=== PATIENT | male | born 1995 | race Caucasian/White ===

== ENCOUNTER 2021-09-12 12:30 | Emergency (ER) | payer SELFPAY ==
[2021-09-12 12:34] VITALS: BP 121/67; PULSE 80; RESP 14; TEMP 36.8; O2SAT 98
--- NOTE | 2021-09-12 12:44 | W.ED.LOWEXIN ---
HPI - Extremity Injury (Lower) General: Chief Complaint: Extremity Injury, Lower Stated Complaint: cant put pressure on ankle Time Seen by Provider: 09/12/21 12:35 Source: patient Mode of arrival: ambulatory Limitations: no limitations History of Present Illness: HPI Narrative: Patient is a 26-year-old male who presents to ED today for evaluation of right ankle pain. Patient tells me 3 to 4 weeks ago he fell down a flight of stairs and rolled his ankle. Patient states he initially thought he may have just strained it so treated conservatively by limiting weight bearing and wearing surgical boot that he had. Patient states even now it is incredibly tender with ambulation. No other injuries or complaints at this time. complaint: ankle injury Onset (ago): week(s) Place: home Severity: moderate Relieving factors: immobilization Exacerbating factors: weight bearing Context: fall Associated symptoms: Reports no associated symptoms Other symptoms: none Review of Systems Musc: Reports: joint pain (R ankle pain); Denies: neck pain, back pain, extremity swelling, joint swelling, joint redness or joint warmth Neuro: Denies: numbness in extremities, weakness in extremities or sensory changes Physical Exam Const: COMMON NORMALS: no acute distress, average body habitus, patient oriented x3, no limitations, healthy appearing, alert and well nourished Extremity: GENERAL: Yes normal exam except as noted RIGHT LOWER EXTREMITY: Yes foot & digits (TTP medial R ankle; no swelling or bony deformity appreciated) Right ankle: Yes neurovascular exam (normal) Neuro: COMMON NORMALS: patient oriented x3, moves all extremities, no focal motor deficits and no sensory deficits noted SENSORIUM/ORIENTATION: Yes alert Skin: TRAUMA: no lacerations or abrasions Course Vital Signs: Vital signs: Vital Signs Temperature 98.3 F 09/12/21 12:34 Pulse Rate 80 09/12/21 12:34 Respiratory Rate 14 09/12/21 12:34 Blood Pressure 121/67 09/12/21 12:34 Pulse Oximetry 98 09/12/21 12:34 MDM - Extremity Injury (Lower) MDM Narrative: Medical decision making narrative: XR negative. Will refer to orthopedics as patient has been doing well with conservative therapies at home yet he is now 3-4 wks post injury and still cannot bear full weight onto ankle. Information placed with CM. Imaging Data^: XR R ankle: Radiologist's impression: [facility], [place] [address]SCgd ReportSigned Patient: Jaycob Martin #: [id number]: 1995Acct#:[id number]/Sex: 26 / MADM Date: 09/12/21Loc: ERRoom/Bed:Attending Dr: Ordering Provider/Ordering MD: Kaylin Lynch Date of Service: 09/12/21 Procedure(s): XR ankle RT min 3V* 47153 Accession Number(s): [id number] Report Number: [id number] WS: [id number] XR ankle RT min 3V* [id number] REASON FOR EXAM: injury/pain FINDINGS: No fracture identified. The ankle mortise is intact. Soft tissue swelling around the ankle joint. XR/XR ankle RT min 3V* [id number] IMPRESSION: Soft tissue swelling with no fracture or dislocation identified. Dictated By:Aime Hall Jr MDSigned By:Aime aHll Jr MDSigned Date/Time:09/12/21 1310DD/ 1309 Discharge Plan Discharge Patient Disposition: Home Clinical Impression: Injury of right ankle Qualifiers: Encounter type: initial encounter Qualified Code(s): S99.911A - Unspecified injury of right ankle, initial encounter Condition: Stable Discharge Orders: Discharge ED (Routine); Ordered 09/12/21 Ordered By: Kaylin Lynch Coding Level of Care Code ED Reeling Machine Setup Operator for Chg Fwd Exam Expanded Problem Focused
--- NOTE | 2021-09-12 12:50 | XR_ITS ---
WS: [id number] XR ankle RT min 3V* [id number] REASON FOR EXAM: injury/pain FINDINGS: No fracture identified. The ankle mortise is intact. Soft tissue swelling around the ankle joint. XR/XR ankle RT min 3V* [id number] IMPRESSION: Soft tissue swelling with no fracture or dislocation identified.
--- NOTE | 2021-09-14 10:37 | DCPLANNER ---
manager testing had message to schedule a follow up appointment for patient with ortho. manager testing called the ortho clinic, spoke with Samantha, gave clinic patients information. manager testing was told that patients information would be printed and reviewed. Clinic will call patient with appointment information.
--- NOTE | 2021-09-16 07:51 | DCPLANNER ---
Addendum entered by Pat Benoit 10/06/21 15:06: Patient had a follow up appointment scheduled for 09.20.[address] Osborne at ortho - patient did attend appointment. Original Note: Patient has a follow up appointment scheduled for Monday, September 20, 2021 at 2:[address] Osborne at ortho. Clinic will call patient with appointment information.
== END 2021-09-12 13:21 | disposition home or self-care (01) ==
PROVIDERS: Emergency Provider Physician Assistant
DX: S99.911A Unspecified injury of right ankle, initial encounter (principal); W10.8XXA Fall (on) (from) other stairs and steps, initial encounter
CPT/HCPCS: 73610; 99281

== ENCOUNTER 2022-05-08 14:44 | Emergency (ER) | payer SELFPAY ==
[2022-05-08 15:01] VITALS: BP 163/81; PULSE 72; RESP 16; TEMP 36.9; O2SAT 99; BMI 27.7
--- NOTE | 2022-05-08 16:10 | XRR_ITS ---
PROCEDURE INFORMATION: Exam: XR Right Hand Exam date and time: 05/08/2022 4:22 PM Age: 27 years old Clinical indication: Injury or trauma; Other: Hand vs door; Other: Blunt trauma TECHNIQUE: Imaging protocol: Radiologic exam of the Right hand. Views: 3 or more views. COMPARISON: No relevant prior studies available. FINDINGS: Bones/joints: Acute fracture of the distal portion of the 5th metacarpal with volar angulation of the distal fragment. 1st through 4th metacarpals are intact. Phalanges are intact. Carpal bones are intact. Soft tissues: Soft tissue swelling is noted. XR/XR hand RT min 3V* [id number] IMPRESSION: Acute boxer's fracture of the 5th metacarpal.
[2022-05-08 17:54] VITALS: BP 135/78; PULSE 78; RESP 16; O2SAT 98
--- NOTE | 2022-05-09 22:12 | W.ED.GENADLT ---
HPI - General Adult General: Chief complaint: General Medical Stated complaint: Right hand injury Time Seen by Provider: 05/08/22 15:28 History of Present Illness: 27-year-old male patient presents to the emergency department complaining of right hand pain. Patient states he punched a wall yesterday patient states he woke up today with significant swelling to the lateral aspect of his right hand. Patient denies any numbness or tingling. Patient denies any other trauma or injury. Associated symptoms: Deny chest pain, confusion, diaphoresis, dyspnea, headache(s), malaise, nausea, rash, palpitations, syncope or vomiting Review of Systems Const: Denies: fever(s), chills, body aches, change in appetite, change in weight, fatigue, malaise or diaphoresis Eyes: Denies: change in vision, blurry vision, blind spots, photophobia, eye discomfort, eye discharge, eye redness, floaters or seeing flashes ENMT: Denies: throat pain, enlarged tonsils, odynophagia, hoarseness, mouth pain, swelling of lips/tongue, oral sores, bleeding gums, dental pain, dry mouth, ear or mastoid pain, ear discharge, change in hearing, tinnitus, disequilibrium, nasal discharge, nasal congestion, post nasal drip or sinus pain Card: Denies: chest pain, palpitations, irregular heart rhythm, edema, swelling of feet/ankles, lightheadedness, syncope, pre-syncope, dyspnea on exertion, orthopnea, leg pain with exertion or acrocyanosis Resp: Denies: dyspnea, productive cough, non-productive cough, wheezing, stridor, pain on inspiration, change in phlegm color, hemoptysis or chest congestion GI: Denies: abdominal pain, nausea, vomiting, hematemesis, dysphagia, diarrhea, constipation, GI cramping, change in bowel habits or rectal pain : Denies: flank pain, dysuria, urinary frequency, urinary urgency, urinary hesitancy or hematuria Musc: Denies: neck pain, back pain, joint pain, joint swelling, joint redness, joint warmth or deformity Skin/Breast: Denies: rash, pruritus, erythema, sores, new lesions, changes in skin color or dry skin Neuro: Denies: headache(s), numbness in extremities, weakness in extremities, sensory changes, lack of coordination, difficulty walking, frequent falls, dizziness, vertigo, confusion, behavioral changes, Slurred speech present, difficulty communicating thoughts or seizure-like activity Psych: Denies: anxiety, depression, suicidal ideation or homicidal ideation Endo: Denies: polyuria, polydipsia, tired all the time, cold intolerance, excessive sweating, flushing, hot flashes or heat intolerance Bishop/Lymph: Denies: easy bruising, easy bleeding, petechiae, purpura, enlarged lymph nodes or tender lymph nodes All/Imm: Denies: urticaria, throat swelling, tongue swelling, facial swelling, acute wheezing or itchy eyes PFSH ED PFSH: Social History Smoking and tobacco status: never smoked Alcohol intake: never Physical Exam Neck/C-Spine: COMMON NORMALS: no JVD Resp: COMMON NORMALS: normal respiratory effort, No retractions, No use of accessory muscles, clear to auscultation bilaterally and percussion normal AUSCULTATION: clear to auscultation bilaterally PERCUSSION: percussion normal Cardio: COMMON NORMALS: no JVD, regular rate, regular rhythm, S1 normal heart sound present, S2 normal heart sound present, No gallops present (Cardio), No clicks present (Cardio), No murmurs present (Cardio), No rub (Cardio) and Peripheral pulses 2+ throughout RATE: regular rate RHYTHM: regular rhythm HEART SOUNDS: S1 normal heart sound present and S2 normal heart sound present PERIPHERAL PULSES: Peripheral pulses 2+ throughout Extremity: NARRATIVE EXTREMITY EXAM: edema noted to the lateral aspect of right hand pt is nvi distally Course ED course: Vital Signs: Vital signs: Vital Signs Temperature 98.5 F 05/08/22 15:01 Pulse Rate 78 05/08/22 17:54 Respiratory Rate 16 05/08/22 17:54 Blood Pressure 135/78 05/08/22 17:54 Pulse Oximetry 98 05/08/22 17:54 Oxygen Delivery Ok thod 05/08/22 15:01 [facility] - General Adult Medical Decision Making Patient is well-appearing nontoxic in no acute distress.27-year-old male patient presents to the emergency department complaining of right hand pain. Patient states he punched a wall yesterday patient states he woke up today with significant swelling to the lateral aspect of his right hand. Patient denies any numbness or tingling. Patient denies any other trauma or injury. Patient is noted to have a boxer's fracture to the fifth metacarpal to the right hand. Patient is neurovascular intact distally. I will place patient in a splint and have him follow-up with Ortho. Patient remains neurovascularly intact distally post splint application. Lab Data Radiology Impressions Hand X-Ray 05/08/22 16:10 IMPRESSION: Acute boxer's fracture of the 5th metacarpal. Discharge Plan Discharge Patient Disposition: Home Clinical Impression: Boxer's fracture Condition: Stable Prescriptions: No Action No Known Home Medications Discharge Orders: Discharge ED (Routine); Ordered 05/08/22 Ordered By: Jennifer Joseph Discharge Diet: Advance as tolerated Discharge Activity: Limit activity as instructed Activity Restrictions/Additional Instructions: We will call you with ortho appointment information tomorrow Keep cast clean and in place Rest, ice and elevate extremity Coding Level of Care Code ED Innersole Maker for Amada Kinney
--- NOTE | 2022-05-10 11:23 | DCPLANNER ---
Addendum entered by Pat Benoit 05/18/22 14:24: Patient has a follow up appointment scheduled for 05.12.22 with ortho - patient did attend appointment. Addendum entered by Pat Benoit 05/12/22 07:26: Patient has a follow up appointment scheduled for Thursday May 12, 2022 at 11:[address] Silva at ortho. Clinic will call patient with appointment information. Original Note: area operations manager had message to schedule a follow up appointment for patient with ortho. area operations manager sent patients information to the front office staff at ortho. Patients information will be printed and reviewed. Clinic will call patient with appointment information.
== END 2022-05-08 17:55 | disposition home or self-care (01) ==
PROVIDERS: Emergency Provider Registered Nurse
DX: S62.396A Other fracture of fifth metacarpal bone, right hand, initial encounter for closed fracture (principal); W22.09XA Striking against other stationary object, initial encounter
CPT/HCPCS: 29125; 73130; 99283

== ENCOUNTER 2022-05-19 10:38 | Day surgery (SDC) | payer SELFPAY ==
[2022-05-18 17:15] VITALS: BMI 27.7
[2022-05-19] VITALS (8 sets, daily range): BP systolic 111–137; BP diastolic 63–88; PULSE 60–78; RESP 14–18; TEMP 36.2–36.5; O2SAT 97–100
--- NOTE | 2022-05-19 | SCC_ITS ---
Procedure done: Right fifth metacarpal neck open reduction internal fixation Right small finger zone 5 extensor tendon repair 180 seconds of fluoroscopic guidance, for a cumulative dose of 3.5 mGy, was provided to Dr. Silva by the radiology department. C-arm images of the RIGHT finger were saved for the patient's permanent record. [facility]ALS[facility]
--- NOTE | 2022-05-19 06:30 | P.ANESASSM_ITS ---
Pre-Anesthetic Assessment Height/Weight: Height 1.98 m Weight 108.862 kg Preop Diagnosis: Fracture right 5th metacarpal Operation Date: 05/19/22 12:00 Proposed Procedures p orif right 5th metacarpal fracture/ 90562,S62.339A(Right) - Chu Silva DO Familial anesthetic complications: None Was Beta Ishmael taken within 24 hours: N/A Was Clonidine taken within 24 hours: N/A Social Tobacco and No alcohol Exam alert, oriented x 3, clear to auscultation bilaterally and regular rate & rhythm Airway Submandibular: within normal limits Cervical ROM: within normal limits Mallampati: Class I Dentition: full History/ROS No significant complaints Pulmonary Asthma CV/HEM None reported None reported Hepatic None reported GI Gastroesophageal Reflux Disease (Well controlled ) Metabolic None reported Musc/skel None reported Neuropsych None reported Anesthetic Plan ASA status: 2 Anesthesia: Anesthesia Evaluation and General Other: We discussed risk and benefits of general anesthesia including PONV, sore throat (sometimes severe), corneal abrasion, positioning and peripheral nerve injuries, life threatening allergic reaction, post operative ICU admission requiring prolonged intubation, stroke, heart attack, , and rare incidences of recall. Patient consents to proceed with general anesthesia. Risk of > 500 ml blood loss (7ml/kg in children): No Medications/Allergies Home Medications Medication Instructions Recorded Confirmed Last Taken Type No Known Home Medications 10/04/21 05/12/22 Unknown History hydrocodone 5 mg-acetaminophen 325 1 tab PO Q6H PRN pain 5 days #20 05/19/22 Unknown Rx mg tablet tabs Allergies Allergy/AdvReac Type Severity Reaction Status Date / Time No Known Allergies Allergy Verified 05/19/22 10:48 [facility] Anesthesia Social History Smoking and tobacco status: current every day smoker Alcohol intake: never Data Anesthesia Cardiac Studies: No Data to Display
[2022-05-19] MEDS: sodium chloride 0.9% 1,000 ML 30 ML IV (11:01)
[2022-05-19] MEDS: ketorolac 30 mg/mL INJ IVP (11:01)
[2022-05-19] MEDS: acetaminophen 1,000 MG/100 ML PIGGYBACK 400 MG IV (11:07)
--- NOTE | 2022-05-19 11:27 | ANES.PREANE2 ---
Pre-Anesthetic Assessment Height/Weight: Height 1.98 m Weight 108.862 kg Temp Pulse Resp BP Pulse Ox O2 Del Method 97.7 F 78 17 123/82 100 05/19/22 10:45 05/19/22 10:45 05/19/22 10:45 05/19/22 10:45 05/19/22 10:45 05/19/22 10:49 Preop Diagnosis: Displaced right fifth metacarpal neck fracture Operation Date: 05/19/22 12:00 Proposed Procedures p orif right 5th metacarpal fracture/ 82463,S62.339A(Right) - Chu Silva DO Last intake: Intake Last Liquid Date 05/18/22 Last Liquid Time 21:00 Last Solid Date 05/18/22 Last Solid Time 20:30 Last Intake: 11:27 Social Tobacco last cig this am Exam alert, oriented x 3, clear to auscultation bilaterally and regular rate & rhythm Airway Submandibular: within normal limits Cervical ROM: within normal limits Mallampati: Class I History/ROS No significant history except as noted Pulmonary Asthma possible as a child CV/HEM None reported None reported Hepatic None reported GI occasional reflux Metabolic None reported Musc/skel None reported Neuropsych None reported Anesthetic Plan ASA status: 2 Anesthesia: Anesthesia Evaluation and General Risk of > 500 ml blood loss (7ml/kg in children): Yes, adequate IV access and fluids planned Medications/Allergies Home Medications Medication Instructions Recorded Confirmed Last Taken Type No Known Home Medications 10/04/21 05/12/22 Unknown History hydrocodone 5 mg-acetaminophen 325 1 tab PO Q6H PRN pain 5 days #20 05/19/22 Unknown Rx mg tablet tabs Allergies Allergy/AdvReac Type Severity Reaction Status Date / Time No Known Allergies Allergy Verified 05/19/22 10:48 Current Medications Generic Name Dose Route Start Last Admin Trade Name Freq PRN Reason Stop Dose Admin Sodium Chloride 1,000 mls @ 30 mls/hr 05/19/22 10:45 05/19/22 11:01 Sodium Chloride 0.9% IV 05/20/22 10:44 30 mls/hr .Q24H CRISTINA Administration PFSH Anesthesia Social History Smoking and tobacco status: current every day smoker Alcohol intake: never Data Anesthesia Cardiac Studies: No Data to Display
--- NOTE | 2022-05-19 11:32 | W.PM.OPSUD ---
Surgery/Procedure H&P Update DATE OF PROCEDURE: May 19, 2022 DATE H&P PERFORMED: 05/12/22 CHANGES TO PREVIOUS DOCUMENTATION: None PREOP DIAGNOSIS: Displaced right fifth metacarpal neck fracture PRIMARY INDICATION FOR PROCEDURE: Displaced angulated right fifth metacarpal neck fracture PLANNED PROCEDURE: Operation Date: 05/19/22 12:00 Proposed Procedures p orif right 5th metacarpal fracture/ 77778,S62.339A(Right) - Chu Silva DO
[2022-05-19] MEDS: ceFAZolin 2,000 MG in sodium chloride 0.9% (plus) 50 ML 100 MG IV (11:46)
--- NOTE | 2022-05-19 13:15 | ANE.PACU2 ---
Inpatient post-anesthesia follow up: Vital signs: Temperature 97.7 F Pulse Rate 78 Respiratory Rate 17 Blood Pressure 123/82 Pulse Oximetry 100 Oxygen Delivery Me thod Room Air Oxygen Flow Rate Fraction of Inspir ed Oxygen
--- NOTE | 2022-05-19 13:26 | P.OP_ITS ---
Brief Operative Note Date of procedure: 05/19/22 Pre-op diagnosis: Right fifth metacarpal neck fracture Post-op diagnosis: other (Right fifth metacarpal neck fracture and right small finger zone 5 extensor tendon injury) Procedure Done: Open reduction internal fixation right fifth metacarpal neck fracture Right small finger zone 5 extensor tendon repair Surgeon: Chu Silva Estimated blood loss (mL): 10 Complications: none Post-op Plan: Pt to recover in pacu. Given DC instructions and pain medications. nwb right u pper extremity, followup with OT hand therapy next week for dressing change, thermaplastic splint, begin ROM hand, followup with Dr Silva in 2 wks Condition: stable Disposition: same day Coding Level of Care Code Acute Automatic Tire Tester for Amada Kinney
--- NOTE | 2022-05-19 13:33 | PM.PACU ---
PACU note Narrative: Patient seen and evaluated in PACU. Patient splint on in place clean dry and intact. Fingers are warm and well-perfused. Sensation tact light touch of the right small finger. Brisk capillary refill less than 2 seconds. Once recovered in PACU will discharge home. We will get in touch with patient to schedule OT hand therapy for splint takedown begin gentle range of motion. Should be nonweightbearing to the right upper extremity. Follow-up in 2 weeks. Exam: awake (See narrative for detailed exam) Disposition: discharged
--- NOTE | 2022-05-19 13:35 | PM.OP ---
Operative Report Date of procedure: May 19, 2022 Pre-op diagnosis: Preop Diagnosis Fracture right 5th metacarpal Post-op diagnosis: Right fifth metacarpal neck fracture Right small finger zone 5 extensor tendon injury Procedure done: Right fifth metacarpal neck open reduction internal fixation Right small finger zone 5 extensor tendon repair Implants: Arthrex 2.5 mm fully threaded headless compression screw 42mm Surgeon: Chu Silva DO Estimated blood loss: 10 cc Esmarch tourniquet 10 minutes IV fluids: See anesthesia record Complications: None Findings: See operative note Condition: stable Disposition: same day Brief History: Arpan sanchez is a 27-year-old gentleman who sustained a boxer's fracture to his right fifth metacarpal neck after punching a wall. He was seen evaluated emergency department splinted and then subsequently sent to the orthopedic office for evaluation and treatment recommendations. On review of his x-rays has significant volar angulation measuring roughly 80 degrees and out of acceptable nonoperative treatment parameters. In the office we have detailed discussion about nonoperative and operative intervention. Given his significant displacement and young age would recommend open reduction internal fixation right fifth metacarpal neck fracture. Detail the risk benefits complications alternatives of surgical treatment options. Risks include but are not limited to make it better, make it worse, infection, stiffness, decreased function of right hand, injury to nerves or vessels or tendons. With this understanding of his risks he agrees to proceed with surgical intervention. Consent was obtained in the office. All questions answered. Patient elects proceed with surgery. Procedure: Patient was seen and evaluated in the preoperative holding area. Consent was reviewed with the patient the correct extremity was then marked. Patient was seen evaluated by the preoperative team and anesthesia department. Once ready for surgery patient was then taken to the OR suite and transferred to the OR table he was placed in supine position all bony prominences were well-padded. Arm table was then placed to the right upper extremity and the arm was placed on this. Due to backorder on tourniquets we intended to utilize an Esmarch tourniquet sterilely. Once appropriately positioned patient then subsequently underwent anesthesia per the anesthesia department. Once patient was appropriately anesthetized the right upper extremity was then prepped and draped in standard orthopedic fashion. Timeout was performed. Patient received appropriate preoperative antibiotics. Esmarch tourniquet was placed to the mid forearm. Procedure started evaluation of fracture pattern under fluoroscopic C arm utilizing mini C arm. Multiple orthogonal images again confirmed in the preoperative diagnosis. Multiple manipulations were subsequently attempted and unsuccessful at achieving near anatomic reduction. Next I proceeded with making a small incision centered over the fifth MP joint sharp scalpel excision through skin and subcutaneous tissue mobilizing full-thickness skin flaps and directly over the extensor mechanism. Directly over the MP joint the extensor mechanism was identified and just split longitudinally in line with the fibers. Then utilize a self retainer to make a longitudinal incision into the capsule. At this point I attempted to utilize a [place] to lever out the fracture site and obtain reduction this was unsuccessful after multiple attempts as well as attempted with close reduction once an open incision was then made. At this point it was evident that my tourniquet had significant inhibition of relaxation to allow for mobilization of the fracture site. Esmarch tourniquet was subsequently taken down and hemostasis was maintained with pressure and electrocautery. Once this was performed I then tried another multiple close reduction attempts as well as extending my extensor tendon split proximally ever so slightly to allow for direct visualization of the volarly angulated fractured head. This was unable to be levered out with a [place] once again at this point it feels as though the proximal fracture fragment during my attempts would appear to be tenting the skin and there appeared to be some laxity at the extensor mechanism. As a result I made the decision to extend my incision proximally over the fracture site to evaluate the fracture pattern. It was evident on my dissection that the proximal fracture fragment that had a dorsal spike had buttonholed through the extensor mechanism and split the tendon longitudinally indicating a zone 5 extensor tendon injury. This did not create a transverse complete laceration however this longitudinal split did cause the tendon to be perched upon the tendon and the tendon was interposed during reduction. Once this was appropriately identified I then cleared out the fracture hematoma as well as removed and freed out all interposed tissue inhibiting my reduction. Once this was clear I then utilized a [place] as well as closed reduction maneuver and held a Jahss technique which at this point was evident that the fracture appeared reduced clinically. I then brought in the mini C arm while holding the reduction and it was evident that the fracture was finally reduced. At this point I then revisited my split over the MP joint identified the dorsal third of the metacarpal head and under direct visualization advanced my K wire. While holding the reduction this was advanced past the fracture site of the metacarpal neck while holding reduction and embedded into the base of the metacarpal. This was then confirmed to be inside the bone in all orthogonal images. I then held up a 42 mm Arthrex 2.5 fully threaded headless compression screw up over the fifth metacarpal to determine that this would be appropriate length. This was an appropriate length screw that would have this small fixation and appropriate working length. As a result I then held my reduction and made sure no excessive rotation was made while drilling or placing screw. Cannulated drill bit was then placed and reamed the isthmus of the metacarpal. Next the 42 mm 2.5 mm Arthrex fully threaded headless compression screw was then advanced while holding the reduction as well as maintaining rotation to not let the screw mall rotate the fracture. This was then advanced into subchondral bone and was inspected directly to be not within the joint. This was confirmed on multiple orthogonal images to be an appropriate depth to be out of the joint however to still maintain fixation of the distal fracture fragment of the metacarpal head as well as a small fit to hold our reduction. The finger was then taken through range of motion and found to have appropriate finger cascade with no evidence of malrotation. I did take the finger through range of motion and it was noted that patient's fracture was stable. No further intervention required. Wound bed was then thoroughly irrigated. I first closed the capsule with 4-0 Monocryl as well as reapproximated the longitudinal split that I made to the distal extensor tendon directly over my arthrotomy and this was approximated with 2-0 Monocryl suture. Then turned my attention towards the extensor tendon injury from the buttonholing of the metacarpal neck fracture. Longitudinal split was then repaired with 0 Vicryl suture. The finger was taken through range of motion and finger extensor tendon repair was stable and appropriately secured. Wound bed thoroughly irrigated. Interrupted 2-0 Vicryl suture as well as a running Monocryl suture was then placed. Incision was then covered with Mastisol and Steri-Strip. Xeroform covered incisions, 4 x 4's ABD Curlex and an ulnar gutter splint was then applied to the right upper extremity. Patient was then awakened from anesthesia and taken to PACU in stable condition Disposition: Patient recover in PACU. Given appropriate discharge instructions as well as pain medication. Patient will see OT hand therapy next week for evaluation and dressing changes will begin gentle range of motion and to be placed in a thermoplastic splint. Patient will follow-up with me in office in 2 weeks. Patient as well as understand agree with current plan. All questions answered. They understand they have any questions sooner they may contact the office.
--- NOTE | 2022-05-19 13:55 | ANE.PACU2 ---
Inpatient post-anesthesia follow up: Airway intact: Yes Vital signs: Temperature 97.1 F Pulse Rate 68 Respiratory Rate 17 Blood Pressure 123/79 Pulse Oximetry 99 Oxygen Delivery Me thod Room Air Oxygen Flow Rate Fraction of Inspir ed Oxygen Hydration adequate: Yes Nausea and vomiting: No Pain level: 1 Mental status: Baseline
[2022-05-19] MEDS: HYDROcodone-acetaminophen 5-325 mg Tablet 1 TAB PO (14:05)
== END 2022-05-19 14:27 | disposition home or self-care (01) ==
PROVIDERS: Visit Provider Student in an Organized Health Care Education/Training Program
PROC: (CPT 26615; principal; 2022-05-19 12:00)
PROC: (CPT 26418; 2022-05-19 12:00)
DX: S62.306A Unspecified fracture of fifth metacarpal bone, right hand, initial encounter for closed fracture (principal); S66.306A Unspecified injury of extensor muscle, fascia and tendon of right little finger at wrist and hand level, initial encounter; W22.8XXA Striking against or struck by other objects, initial encounter; K21.9 Gastro-esophageal reflux disease without esophagitis; F17.210 Nicotine dependence, cigarettes, uncomplicated
CPT/HCPCS: 26418; 26615; 76000; C1713; J1100; J1885; J2250; J2405; J2704; J3010; J3490; J7030

== ENCOUNTER 2022-05-23 08:46 | Outpatient (RCR) | payer SELFPAY | END 2022-06-02 23:59 | disposition home or self-care (01) | LOC: SOT 08:46 | PROVIDERS: Visit Provider Student in an Organized Health Care Education/Training Program | DX: Z47.89 Encounter for other orthopedic aftercare (principal) | CPT/HCPCS: 97110; 97140; 97165; 97760 ==

== ENCOUNTER → 2022-06-02 10:34 | Outpatient (BNVA) | payer SELFPAY | PROVIDERS: Visit Provider Student in an Organized Health Care Education/Training Program | DX: S62.336P Displaced fracture of neck of fifth metacarpal bone, right hand, subsequent encounter for fracture with malunion (principal); X58.XXXD Exposure to other specified factors, subsequent encounter | CPT/HCPCS: 73130 ==

== ENCOUNTER 2022-06-03 06:00 | Outpatient (RCR) | payer SELFPAY | END 2022-07-03 23:59 | disposition home or self-care (01) | LOC: SOT 06:00 | PROVIDERS: Visit Provider Student in an Organized Health Care Education/Training Program | DX: S62.306D Unspecified fracture of fifth metacarpal bone, right hand, subsequent encounter for fracture with routine healing (principal); X58.XXXD Exposure to other specified factors, subsequent encounter | CPT/HCPCS: 97018; 97110; 97140; L3908 ==

== ENCOUNTER → 2022-06-30 09:28 | Outpatient (BNVA) | payer MEDICAID, SELFPAY | PROVIDERS: Visit Provider Student in an Organized Health Care Education/Training Program | DX: S62.331A Displaced fracture of neck of second metacarpal bone, left hand, initial encounter for closed fracture (principal); X58.XXXA Exposure to other specified factors, initial encounter | CPT/HCPCS: 73130 ==

== ENCOUNTER 2022-07-04 06:00 | Outpatient (RCR) | payer SELFPAY | END 2022-08-02 23:59 | disposition home or self-care (01) | LOC: SOT 06:00 | PROVIDERS: Visit Provider Student in an Organized Health Care Education/Training Program | DX: S62.306S Unspecified fracture of fifth metacarpal bone, right hand, sequela (principal); X58.XXXS Exposure to other specified factors, sequela | CPT/HCPCS: 97018; 97022; 97110; 97140 ==

== ENCOUNTER 2022-08-03 06:00 | Outpatient (RCR) | payer BC, SELFPAY | END 2022-09-02 23:59 | disposition home or self-care (01) | LOC: SOT 06:00 | PROVIDERS: Visit Provider Student in an Organized Health Care Education/Training Program | DX: S62.306D Unspecified fracture of fifth metacarpal bone, right hand, subsequent encounter for fracture with routine healing (principal); X58.XXXD Exposure to other specified factors, subsequent encounter | CPT/HCPCS: 97018; 97110; 97140 ==

== ENCOUNTER → 2022-08-14 09:21 | Outpatient (BNVA) | payer BC, SELFPAY | PROVIDERS: Visit Provider Student in an Organized Health Care Education/Training Program | DX: S62.336A Displaced fracture of neck of fifth metacarpal bone, right hand, initial encounter for closed fracture (principal); X58.XXXA Exposure to other specified factors, initial encounter | CPT/HCPCS: 73130 ==

== ENCOUNTER → 2023-04-12 12:34 | Outpatient (BNVA) | payer OTHER, SELFPAY | PROVIDERS: Visit Provider Emergency Medicine | DX: R09.81 Nasal congestion (principal); Z20.822 Contact with and (suspected) exposure to COVID-19 | CPT/HCPCS: 87426 ==